=== PATIENT | male | born 1985 | race Caucasian/White ===

== ENCOUNTER 2017-09-10 05:30 | Emergency (ER) | payer MEDICAID, OTHER ==
[~2017-09-10] VITALS: Ht 177.8 cm; Wt 130.0 kg
[2017-09-10 05:33] VITALS: BP 143/87; PULSE 78; RESP 16; TEMP 98.1; O2SAT 98
[2017-09-10] MEDS ORDERED: ZANT150T2 PO (05:33)
[2017-09-10] MEDS ORDERED: SODIUM CHLOR 0.9% 1000 ML INJ 1,000 ML IV SCH (05:53)
[2017-09-10] MEDS ORDERED: SODIUM CHLORIDE 0.9% FLUSH 10 ML FLUSH IV FLUSH PRN (06:00)
[2017-09-10] MEDS ORDERED: METOCLOPRAMIDE HCL 10 MG/2 ML VIAL IV PUSH ONE (06:00)
[2017-09-10] MEDS ORDERED: MORPHINE SULFATE 4 MG/ML INJ IV PUSH ONE (06:00)
[2017-09-10] MEDS ORDERED: KETOROLAC TROMETHAMINE 30 MG/ML (IVP) VIAL IVP ONE (06:00)
[2017-09-10] MEDS ORDERED: ZOFR4TAB3 SL (06:01)
[2017-09-10] MEDS ORDERED: NORC5TAB PO (06:01)
--- NOTE | 2017-09-10 06:01 | PD ---
HPI Chief Complaint: Abdominal Pain Time Seen by Provider: 05:35 Travel History International Travel<30 days: No Contact w/Intl Traveler<30days: No Traveled to known affect area: No History of Present Illness HPI The patient is a 31-year-old male who presents to the emergency department for right upper quadrant abdominal pain. The patient has a history of gallbladder disease, has undergone previous workup in [place], [place], for right upper quadrant abdominal pain. He notes a 2-1/2 month history of intermittent pain, recently had a HIDA scan which revealed an ejection fraction of 13%. The patient is scheduled to undergo surgical evaluation on September 18 in [place], [place], for possible cholecystectomy. Patient states he ate a hamburger last night and then developed abdominal pain today. The abdominal pain is right upper quadrant, sharp, associated with nausea. It is similar to previous episodes, however, slightly worse today. The patient was prescribed hydrocodone in [place], [place], but did not take it on the plane. He denies any fever, chills, or sweats. He does have a history of previous gastric sleeve with subsequent 200 pound weight loss. PFSH Past Medical History Narrative Medical Biliary colic, GERD GERD: Yes Tetanus Vaccination: < 5 Years Influenza Vaccination: No Past Surgical History Narrative Surgical Gastric sleeve, bilateral ankle surgery Other Surgery: Yes (gastric sleeve, bilaterial ankle surgery) Social History Alcohol Use: No Tobacco Use: No Substance Use: No Allergies-Medications (Allergen,Severity, Reaction): Coded Allergies: Penicillins (Verified Allergy, Severe, Hives, 09/10/17) Reported Meds & Prescriptions Reported Meds & Active Scripts Active Zofran Odt (Ondansetron Odt) 4 Mg Tab 4 Mg SL Q6HR PRN [place] (Hydrocodone-Acetaminophen) 5 Mg-325 Mg Tab 1 Tab PO Q6H PRN Reported Zantac (Ranitidine HCl) 150 Mg Tab 150 Mg PO DAILY Review of Systems Except as stated in HPI: all other systems reviewed are Neg General / Constitutional: No: Fever Cardiovascular: No: Chest Pain or Discomfort Respiratory: No: Shortness of Breath Gastrointestinal: Positive: Nausea, Abdominal Pain, No: Vomiting, Diarrhea Physical Exam Narrative GENERAL: Awake, alert, pleasant 31-year-old male who appears his stated age and is in no acute respiratory distress. SKIN: Focused skin assessment warm/dry. HEAD: Atraumatic. Normocephalic. EYES: No injection or drainage. ENT: No nasal bleeding or discharge. Mucous membranes pink and moist. NECK: Trachea midline. No JVD. CARDIOVASCULAR: Regular rate and rhythm. No murmur appreciated. RESPIRATORY: No accessory muscle use. Clear to auscultation. Breath sounds equal bilaterally. GASTROINTESTINAL: Abdomen soft, obese, tender palpation right upper quadrant. MUSCULOSKELETAL: No obvious deformities. No clubbing. No cyanosis. No edema. NEUROLOGICAL: Awake and alert. No obvious cranial nerve deficits. Motor grossly within normal limits. Normal speech. PSYCHIATRIC: Appropriate mood and affect; insight and judgment normal. Data Data Last Documented VS Vital Signs Date Time Temp Pulse Resp B/P (MAP) Pulse Ox O2 Delivery O2 Flow Rate FiO2 09/10/17 08:48 09/10/17 07:07 16 09/10/17 07:06 60 98 Room Air 09/10/17 05:33 98.1 Orders Orders Complete Blood Count With Diff (09/10/17 05:53) Comprehensive Metabolic Panel (09/10/17 05:53) Lipase (09/10/17 05:53) Us Abdomen Gallbladder (09/10/17 ) Iv Access Insert/Monitor (09/10/17 05:53) Ecg Monitoring (09/10/17 05:53) Oximetry (09/10/17 05:53) Morphine Inj (Morphine Inj) (09/10/17 06:00) Sodium Chlor 0.9% 1000 Ml Inj (Ns 1000 M (09/10/17 05:53) Sodium Chloride 0.9% Flush (Ns Flush) (09/10/17 06:00) Ketorolac Inj (Toradol Inj) (09/10/17 06:00) Metoclopramide Inj (Reglan Inj) (09/10/17 06:00) Ed Discharge Order (09/10/17 08:33) Labs Laboratory Tests Test 09/10/17 06:09 White Blood Count 7.9 TH/MM3 Red Blood Count 5.46 MIL/MM3 Hemoglobin 15.3 GM/DL Hematocrit 46.2 % Mean Corpuscular Volume 84.7 FL Mean Corpuscular Hemoglobin 28.0 PG Mean Corpuscular Hemoglobin Concent 33.0 % Red Cell Distribution Width 13.2 % Platelet Count 243 TH/MM3 Mean Platelet Volume 9.2 FL Neutrophils (%) (Auto) 56.5 % Lymphocytes (%) (Auto) 33.2 % Monocytes (%) (Auto) 6.7 % Eosinophils (%) (Auto) 2.5 % Basophils (%) (Auto) 1.1 % Neutrophils # (Auto) 4.5 TH/MM3 Lymphocytes # (Auto) 2.6 TH/MM3 Monocytes # (Auto) 0.5 TH/MM3 Eosinophils # (Auto) 0.2 TH/MM3 Basophils # (Auto) 0.1 TH/MM3 CBC Comment DIFF FINAL Differential Comment Blood Urea Nitrogen 22 MG/DL Creatinine 1.00 MG/DL Random Glucose 87 MG/DL Total Protein 7.1 GM/DL Albumin 3.7 GM/DL Calcium Level 8.9 MG/DL Alkaline Phosphatase 58 U/L Aspartate Amino Transf (AST/SGOT) 25 U/L Alanine Aminotransferase (ALT/SGPT) 33 U/L Total Bilirubin 0.3 MG/DL Sodium Level 142 MEQ/L Potassium Level 3.9 MEQ/L Chloride Level 107 MEQ/L Carbon Dioxide Level 29.7 MEQ/L Anion Gap 5 MEQ/L Estimat Glomerular Filtration Rate 88 ML/MIN Lipase 150 U/L MDM Medical Decision Making Medical Screen Exam Complete: Yes Emergency Medical Condition: Yes Medical Record Reviewed: Yes Interpretation(s) Laboratory Tests Test 09/10/17 06:09 White Blood Count 7.9 TH/MM3 Red Blood Count 5.46 MIL/MM3 Hemoglobin 15.3 GM/DL Hematocrit 46.2 % Mean Corpuscular Volume 84.7 FL Mean Corpuscular Hemoglobin 28.0 PG Mean Corpuscular Hemoglobin Concent 33.0 % Red Cell Distribution Width 13.2 % Platelet Count 243 TH/MM3 Mean Platelet Volume 9.2 FL Neutrophils (%) (Auto) 56.5 % Lymphocytes (%) (Auto) 33.2 % Monocytes (%) (Auto) 6.7 % Eosinophils (%) (Auto) 2.5 % Basophils (%) (Auto) 1.1 % Neutrophils # (Auto) 4.5 TH/MM3 Lymphocytes # (Auto) 2.6 TH/MM3 Monocytes # (Auto) 0.5 TH/MM3 Eosinophils # (Auto) 0.2 TH/MM3 Basophils # (Auto) 0.1 TH/MM3 CBC Comment DIFF FINAL Differential Comment Blood Urea Nitrogen 22 MG/DL Creatinine 1.00 MG/DL Random Glucose 87 MG/DL Total Protein 7.1 GM/DL Albumin 3.7 GM/DL Calcium Level 8.9 MG/DL Alkaline Phosphatase 58 U/L Aspartate Amino Transf (AST/SGOT) 25 U/L Alanine Aminotransferase (ALT/SGPT) 33 U/L Total Bilirubin 0.3 MG/DL Sodium Level 142 MEQ/L Potassium Level 3.9 MEQ/L Chloride Level 107 MEQ/L Carbon Dioxide Level 29.7 MEQ/L Anion Gap 5 MEQ/L Estimat Glomerular Filtration Rate 88 ML/MIN Lipase 150 U/L Last Impressions Gall Bladder Ultrasound 09/10/17 0000 Signed Impressions: CONCLUSION: 1. Heterogeneous hyperechoic hepatic echotexture characteristic of steatosis o r diffuse parenchymal disease. 2. Trace pericholecystic fluid otherwise no evidence of gallbladder wall thick ening or gallstones. 3. Poor visualization of the pancreas 4. Is no evidence of acute process. Differential Diagnosis Differential diagnosis includes biliary colic, cholecystitis, choledocholithiasis, pancreatitis, peptic ulcer disease, gastritis. Narrative Course The patient was administered morphine, Toradol, Reglan, and IV fluids. Ultrasound of the right upper quadrant was obtained. The patient was signed out to the oncoming physician at 7 AM with ultrasound pending. If ultrasound is negative the patient will be discharged home with outpatient follow-up as scheduled on September 18 with his surgeon in [place], [place]. White count is unremarkable. LFTs and lipase are unremarkable. I doubt choledocholithiasis. Ultrasound reveals no acute process. Patient would prefer outpatient follow-up at home as scheduled. Therefore, patient will be discharged. He is advised to return if symptoms worsen or progress. Diagnosis Primary Impression: Biliary colic Patient Instructions: General Instructions Additional Instructions: Please provide the patient a copy of the ultrasound results and lab results at discharge. Medications as directed. Low-fat diet until seen by her surgeon. Return if symptoms worsen or progress. Med/Other Pt SpecificInfo: Prescription(s) given Scripts Ondansetron Odt (Zofran Odt) 4 Mg Tab 4 MG SL Q6HR Y for Nausea/Vomiting, #7 TAB 0 Refills Prov: Joe Hernandez MD 09/10/17 Hydrocodone-Acetaminophen ([place]) 5 Mg-325 Mg Tab 1 TAB PO Q6H Y for PAIN, #12 TAB 0 Refills Prov: Joe Hernandez MD 09/10/17 Disposition: 01 DISCHARGE HOME Condition: Stable Joe Hernandez MD September 10, 2017 06:01
[2017-09-10 06:24] LABS: AUTOMATED NEUTROPHIL # 4.5 TH/MM3 (1.8-7.7); BASOPHIL # 0.1 TH/MM3 (0-0.2); BASOPHIL % 1.1 % (0.0-2.0); EOSINOPHIL # 0.2 TH/MM3 (0-0.4); EOSINOPHIL % 2.5 % (0.0-4.0); HEMATOCRIT 46.2 % (39.0-51.0); HEMOGLOBIN 15.3 GM/DL (13.0-17.0); LYMPH % 33.2 % (9.0-44.0); LYMPHOCYTE # 2.6 TH/MM3 (1.0-4.8); MEAN CELL VOLUME 84.7 FL (80.0-100.0); MEAN PLATELET VOLUME 9.2 FL (7.0-11.0); MONO % 6.7 % (0.0-8.0); MONOCYTE # 0.5 TH/MM3 (0-0.9); NEUT % 56.5 % (16.0-70.0); PLATELET COUNT 243 TH/MM3 (150-450); RED BLOOD COUNT 5.46 MIL/MM3 (4.50-5.90); RED CELL DISTRIBUTION WIDTH 13.2 % (11.6-17.2); WHITE BLOOD COUNT 7.9 TH/MM3 (4.0-11.0)
[2017-09-10 06:28] VITALS: BP 145/78; PULSE 68; RESP 13; O2SAT 96
[2017-09-10 06:31] LABS: CHLORIDE 107 MEQ/L (98-107); SODIUM (NA) 142 MEQ/L (136-145)
[2017-09-10 06:34] LABS: CALCIUM 8.9 MG/DL (8.5-10.1)
[2017-09-10 06:35] LABS: ALBUMIN 3.7 GM/DL (3.4-5.0); BICARBONATE 29.7 MEQ/L (21.0-32.0); BLOOD UREA NITROGEN 22 MG/DL (7-18); GLUCOSE,RANDOM 87 MG/DL (74-106)
[2017-09-10 06:37] LABS: ALT (GPT) 33 U/L (12-78); AST (GOT) 25 U/L (15-37)
[2017-09-10 06:38] LABS: GLOMERULAR FILTRATION RATE 88 ML/MIN (>89)
[2017-09-10 06:39] LABS: TOTAL BILIRUBIN ADULT 0.3 MG/DL (0.2-1.0); TOTAL PROTEIN 7.1 GM/DL (6.4-8.2)
[2017-09-10 06:40] LABS: ALKALINE PHOSPHATASE 58 U/L (45-117)
[2017-09-10 07:06] VITALS: BP 116/72; PULSE 60; RESP 16; O2SAT 98
--- NOTE | 2017-09-10 08:10 | RADRPT ---
EXAM DATE: 09/10/2017 8:01 AM EDT AGE/SEX: 31 years / Male INDICATIONS: Right upper quadrant pain. CLINICAL DATA: This is the patient's initial encounter. Patient reports that signs and/or symptoms h ave been present for 4 - 6 days and indicates a pain score of 5/10. LOCATION: LATERALITY: MEDICAL/SURGICAL HISTORY: Gastroesophageal reflux disease. COMPARISON: No prior [facility] exams available for comparison MEASUREMENTS (cm x cm x cm): Liver:__ 15.2 cm length Common Bile Duct:__ 7mm Right Kidney:__ FINDINGS: Liver: The liver demonstrates an abnormal echotexture with diffuse heterogeneous hyperechoic texture . There are no focal suspicious lesions or evidence of biliary duct dilatation. Portal Vein: Hepatopedal flow seen in portal vein. Common Duct: No intraluminal mass or stone visualized. Gallbladder: Trace amount of fluid is seen adjacent to the gallbladder. No stones or wall thickening are noted.. Pancreas: Not well visualized Right Kidney: No mass or hydronephrosis. Measures CONCLUSION: 1. Heterogeneous hyperechoic hepatic echotexture characteristic of steatosis or diffuse parenchymal disease. 2. Trace pericholecystic fluid otherwise no evidence of gallbladder wall thickening or gallstones. 3. Poor visualization of the pancreas 4. Is no evidence of acute process. Electronically signed by: Wilfred Dowd MD 09/10/2017 8:09 AM EDT
== END 2017-09-10 08:49 | disposition home or self-care (01) ==
LOC: PHED 05:30
DX: K80.50 Calculus of bile duct without cholangitis or cholecystitis without obstruction (principal); K21.9 Gastro-esophageal reflux disease without esophagitis; Z98.84 Bariatric surgery status; Z88.0 Allergy status to penicillin
CPT/HCPCS: 76705; 80053; 83690; 85025; 96361; 96374; 96375; 99284; J1885; J2270; J2765; J7030